=== PATIENT | female | born 1990 | race Caucasian/White ===

== ENCOUNTER 2022-08-27 20:58 | Emergency (ER) | payer BC ==
[~2022-08-27] VITALS: Ht 160 cm; Wt 72.6 kg
[2022-08-27 21:19] VITALS: BP_SYST 117
--- NOTE | 2022-08-27 22:00 | NUR ---
PT BIB SELF FROM URGENT CARE, AMBULATED TO BED 7. PT A&Ox4, ABLE TO MAKE NEEDS KNOWN. PT C/O LOWER LEFT LEG PAIN. PT DENIES PAIN AT THIS TIME. ONLY TIME PT FEELS PAIN IS WHEN LEG IS TOUCHED OR SQUEEZED. SWELLING NOTED ON LEFT ANKLE. PT STATES SHE HAS "TINGLING" FEEL ON LEFT FOOT PT STATES SHE NOTICED LEFT ANKLE SWELLING AT 1800. PT STATES SHE TOOK 600MG MOTRIN AT 1800. PT STATES SHE INJURED KNEE ON SATURDAY WHILE WORKING OUT. SAFETY PRECAUTIONS IN PLACE.
--- NOTE | 2022-08-27 22:28 | NUR ---
ER Dr. COMBS at bedside examining patient.
[2022-08-28] MEDS ORDERED: IBUP-1969 PO (00:40)
[2022-08-28 00:58] VITALS: BP_SYST 118
--- NOTE | 2022-08-28 00:58 | NUR ---
Patient given written and verbal discharge instructions and verbalizes understanding. ER MD discussed with patient the results and treatment provided. Patient in stable condition. Rx of Ibuprofen 600 mg given. Patient educated on pain management and to follow up with PMD. Opportunity for questions provided and answered.
== END 2022-08-28 00:58 | disposition home or self-care (01) ==
LOC: SED 20:58
DX: S89.92XA Unspecified injury of left lower leg, initial encounter (principal); R22.42 Localized swelling, mass and lump, left lower limb; Z88.0 Allergy status to penicillin; Z79.899 Other long term (current) drug therapy; W18.31XA Fall on same level due to stepping on an object, initial encounter; Y93.89 Activity, other specified; Y92.89 Other specified places as the place of occurrence of the external cause; Y99.8 Other external cause status
CPT/HCPCS: 73564; 93971; 99284